=== PATIENT | female | born 1995 | race American Indian/Alaskan Native ===

== ENCOUNTER 2016-08-10 12:39 | Outpatient (CLI) | payer MEDICAID ==
[2016-08-10] MEDS ORDERED: ZITHROMAX PO ONE (14:00)
--- NOTE | 2016-08-10 14:44 | Ultrasound Report ---
BIOPHYSICAL PROFILE: INDICATION: well being. COMPARISON: Yesterday. TECHNIQUE: Transabdominal ultrasound with Doppler interrogation. 2 - breathing movements 2 - movements 2 - posture and tone 2 - Qualitative amniotic fluid volume 8 - TOTAL SCORE OF POSSIBLE 8 Heart Rate (bpm) 129
--- NOTE | 2016-08-10 14:45 | Ultrasound Report ---
OB LIMITED INDICATION: ISABELLE. COMPARISON: None similar. TECHNIQUE: Transabdominal grayscale ultrasound with Doppler interrogation. Gestation: Piña Position: Cephalic Amniotic Fluid: Increased (> 24 cm) ISABELLE = 26.4 cm Heart Rate: 129 BPM
== END 2016-08-10 15:45 | disposition home or self-care (01) ==
LOC: TRG 12:39
PROVIDERS: ATTEND Obstetrics & Gynecology
DX: O77.9 Labor and delivery complicated by fetal stress, unspecified (principal); O47.9 False labor, unspecified; Z3A.00 Weeks of gestation of pregnancy not specified
CPT/HCPCS: 59025; 76815; 76819

== ENCOUNTER 2016-08-12 08:34 | Inpatient (IN) | payer MEDICAID ==
[2016-08-12 09:55] LABS: Hemoglobin 10.5 gm/dl (10.1-14.3); Mean Corpuscular HGB Conc 33 % (30-34); Mean Corpuscular Hemoglobin 28 pg (28-32); Mean Corpuscular Volume 86 fl (79-97); Platelet Count 246 K/mm3 (140-440); Red Blood Count 3.71 M/mm3 (3.65-5.03); Red Cell Distribution Width 15.9 % (13.2-15.2); White Blood Count 8.7 K/mm3 (4.5-11.0)
[2016-08-12] MEDS ORDERED: ePHEDrine SULFATE IV PRN ×2 (10:35→15:05)
[2016-08-12] MEDS ORDERED: BRETHINE IVP PRN (10:35)
[2016-08-12] MEDS ORDERED: ZOFRAN IV PRN ×2 (10:35→20:33)
[2016-08-12] MEDS ORDERED: SUBLIMAZE IV PRN (10:35)
[2016-08-12] MEDS ORDERED: BRETHINE SUB-Q PRN (10:35)
[2016-08-12] MEDS ORDERED: MINERAL OIL PO PRN (10:35)
--- NOTE | 2016-08-12 10:43 | Event Note ---
Date: 08/12/16 (IOL admission: 21 y/o at 41.4 wk EGA admitted for IOL. VE: 1-2/50-2, soft. Ctx irregular, mild (pt unaware of presence of ctx on EFM. FHR Cat I. Balloon cath placed through cx and filled with 60 cc sterile saline. PT/ fetus tolerated well. Plan low dose pitocin while cath is in. Plan H&P next exam ( record not avail at this time). Anticipate . )
[2016-08-12] MEDS ORDERED: PITOCin/NS 20 UNIT/1000ML DRIP 1,000 ML IV SCH ×2 (11:00→21:00)
[2016-08-12] MEDS ORDERED: PITOCin/NS 30 UNIT/500ML 500 ML IV SCH (11:00)
[2016-08-12] MEDS: LACTATED RINGERS 1,000 ML IV SCH ×3 (11:12→16:18)
[2016-08-12] MEDS: PITOCin/NS 30 UNIT/500ML 500 ML IV SCH ×3 (11:22→16:25)
[2016-08-12] MEDS ORDERED: FLUARIX QUAD 2016-2017(36 MOS+) IM ONE (12:00)
--- NOTE | 2016-08-12 13:04 | History and Physical Report ---
History of Present Illness Date of examination: 08/12/16 ((LE from 10:00 exam)) Date of admission: 08/12/16 08:34 History of present illness: Admission for post EDC induction of labor Past History Past Medical History: no pertinent history Past Surgical History: no surgical history PODIATRIST History: chlamydia (Pt non-compliant with treatment, was admitted 2 days ago for tx here. ) Family/Genetic History: heart disease, hypertension (Paternal G'mother with bipolar D/O and AIDS) Social history: single (FOB present in L&D with pt) - Obstetrical History Expected Date of Delivery: 08/01/16 Actual Gestation: 41 Week(s) 4 Day(s) : 2 Para: 2 Hx # Term Pregnancies: 1 Number of Pregnancies: 0 Number of Living Children: 1 #1 year: 2,014 Birthweight: 2.722 kg Method of Delivery: Vaginal Gestational age at delivery: 38 Complications: other (Induction for IUGR) Medications and Allergies Allergies Allergy/AdvReac Type Severity Reaction Status Date / Time No Known Allergies Allergy Verified 07/21/16 23:53 Home Medications Medication Instructions Recorded Confirmed Last Taken Type No Known Home Medications [No 08/12/16 08/12/16 Unknown History Reported Home Medications] Active Meds: Active Medications Fentanyl (Sublimaze) 100 mcg IV Q2H PRN PRN Reason: Labor Pain Lactated Ringer's (Lactated Ringers) 1,000 mls @ 125 mls/hr IV DIRECT GRANT Last Admin: 08/12/16 11:12 Dose: 125 mls/hr Oxytocin/Sodium Chloride (Pitocin/Ns 20 Unit/1000ml Drip) 1,000 mls @ 125 mls/ hr IV DIRECT GRANT Oxytocin/Sodium Chloride (Pitocin/Ns 30 Unit/500ml) 500 mls @ 2 mls/hr IV TITR GRANT PRN Reason: Protocol Oxytocin/Sodium Chloride (Pitocin/Ns 30 Unit/500ml) 500 mls @ 1 mls/hr IV TITR GRANT; 1 MILLIUNITS/MIN PRN Reason: Protocol Last Admin: 08/12/16 12:26 Dose: 4 mls/hr Mineral Oil (Mineral Oil) 30 ml PO QHS PRN PRN Reason: Constipation Ondansetron HCl (Zofran) 4 mg IV Q8H PRN PRN Reason: Nausea And Vomiting Review of Systems All systems: negative - Vital Signs Vital signs: Vital Signs Temp Resp 97.6 F 18 08/12/16 09:38 08/12/16 09:38 Temp Pulse Resp BP Pulse Ox 97.8 F 80 16 120/65 99 08/12/16 11:27 08/12/16 12:28 08/12/16 11:27 08/12/16 12:28 08/12/16 11:27 - Physical Exam Breasts: Positive: normal Cardiovascular: Regular rate Lungs: Positive: Clear to auscultation Abdomen: Positive: normal appearance, soft Genitourinary (Female): Positive: normal external genitalia, normal perenium Vulva: both: normal Vagina: Positive: normal moisture Cervix: Negative: lesion, discharge Uterus: Positive: normal size, normal contour Adnexa: both: normal - Obstetrical FHR: category 1 Uterine Contraction Monitor Mode: External Cervical Dilatation: 1.5 Cervical Effacement Percentage: 50 station: -2 Uterine Contraction Pattern: Irregular Uterine Contraction Intensity: Mild Results Result Diagrams: 08/12/16 09:30 Abnormal lab results 08/12/16 Range/Units 09:30 RDW 15.9 H (13.2-15.2) % All other labs normal. Assessment and Plan A, 21 y/o @ 41.4 wk EGA admitted for IOL Hx noncompliance with tx for + CT, tx'd here 2 days ago. GBS Neg P Balloon placed Low dose pitocin while balloon is in place Will plan increasing pitocin once balloon is released Anticipate
--- NOTE | 2016-08-12 14:00 | Progress Note ---
Assessment and Plan A 41.4 wk IUP in early labor now s/p balloon placement and removal Painful ctx now and good labor progreass P. AROM with moderate amount of clear fluid Proceed now with pitocin increased to adequate ctx pattern Anticipate . Subjective - Subjective Date of service: 08/12/16 Interval history: Admission for post EDC induction of labor Patient reports: contractions (Having painful ctx. Has had one dose IV pain medication) Objective - Vital Signs Vital Signs: Vital Signs - 12hr 08/12/16 08/12/16 08/12/16 09:38 09:46 11:27 Temperature 97.6 F 97.8 F Pulse Rate 83 Pulse Rate [ 83 From Monitor] Respiratory 18 16 Rate Blood Pressure 108/68 Blood Pressure 121/68 [Left Arm] O2 Sat by Pulse 99 Oximetry 08/12/16 08/12/16 08/12/16 11:29 12:28 13:30 Temperature Pulse Rate 75 80 Pulse Rate [ From Monitor] Respiratory 18 Rate Blood Pressure 121/68 120/65 Blood Pressure [Left Arm] O2 Sat by Pulse Oximetry - Exam Breasts: deferred Lungs: Normal air movement Abdomen: Present: normal appearance Vulva: both: normal FHR: category 1 Uterine Contraction Monitor Mode: External Cervical Dilatation: 4 (Balloon in vagina was removed prior to cx exam) Cervical Effacement Percentage: 80 station: -2 with BBOW Uterine Contraction Pattern: Regular Uterine Contraction Intensity: Moderate - Labs Labs: Abnormal Labs 08/12/16 09:30 RDW 15.9 H Laboratory Results - last 24 hr 08/12/16 08/12/16 09:30 09:30 WBC 8.7 RBC 3.71 Hgb 10.5 Hct 32.0 MCV 86 MCH 28 MCHC 33 RDW 15.9 H Plt Count 246 Blood Type O POSITIVE Antibody Screen Negative
[2016-08-12] MEDS ORDERED: ePHEDrine SULFATE ONE (14:31)
--- NOTE | 2016-08-12 15:04 | Anesthesia Consultation ---
Anesthesia Consult and Med Hx Date of service: 08/12/16 - Airway Anesthetic Teeth Evaluation: Good ROM Head & Neck: Adequate Mental/Hyoid Distance: Adequate Mallampati Class: Class II Intubation Access Assessment: Probably Good - Pre-Operative Health Status ASA Pre-Surgery Classification: ASA2 Proposed Anesthetic Plan: Epidural, Spinal - Pulmonary Hx Asthma: No COPD: No Hx Pneumonia: No - Cardiovascular System Hx Hypertension: No - Central Nervous System Hx Seizures: No Hx Psychiatric Problems: No - Endocrine Hx Renal Disease: No Hx End Stage Renal Disease: No Hx Hypothyroidism: No Hx Hyperthyroidism: No - Hematic Hx Anemia: No Hx Sickle Cell Disease: No - Other Systems Hx Alcohol Use: No
[2016-08-12] MEDS ORDERED: NARCAN 2 MG/2 ML IV PRN (15:05)
[2016-08-12] MEDS ORDERED: XYLOCAINE MPF 2% ONE ×5 (15:43→19:56)
[2016-08-12] MEDS ORDERED: fentaNYL-BUPIV 2 MCG/ML-0.125% 100 ML EPIDURAL SCH ×2 (16:00→21:00)
--- NOTE | 2016-08-12 17:55 | Event Note ---
Date: 08/12/16 Patient signed out to me by NILE. She was on Pit at 6 mu/min and was 8 cm on exam. I have stopped her Pit for now until current delivery complete. Will re- start Pit once delivery complete
--- NOTE | 2016-08-12 18:22 | Progress Note ---
Assessment and Plan A. IOL at 41.4 wk EGA GBS Neg Normal progress since last exam Cat II FHR tracing P Pt signed out to Dr Craig now at my end of call shift Dr Craig informed of Cat II tracing and stated he will manage this by turning off pitocin at this time. Subjective - Subjective Date of service: 08/12/16 ((LE from 17:10 exam)) Interval history: Admission for post EDC induction of labor Patient reports: contractions (Having painful ctx. Has had one dose IV pain medication), other (comfortable now with epidural) Objective - Vital Signs Vital Signs: Vital Signs - 12hr 08/12/16 08/12/16 08/12/16 09:38 09:46 11:27 Temperature 97.6 F 97.8 F Pulse Rate 83 Pulse Rate [ 83 From Monitor] Respiratory 18 16 Rate Blood Pressure 108/68 Blood Pressure 121/68 [Left Arm] O2 Sat by Pulse 99 Oximetry 08/12/16 08/12/16 08/12/16 11:29 12:28 13:30 Temperature Pulse Rate 75 80 Pulse Rate [ From Monitor] Respiratory 18 Rate Blood Pressure 121/68 120/65 Blood Pressure [Left Arm] O2 Sat by Pulse Oximetry 08/12/16 16:13 Temperature Pulse Rate Pulse Rate [ From Monitor] Respiratory 14 Rate Blood Pressure 106/67 Blood Pressure [Left Arm] O2 Sat by Pulse Oximetry - Exam Breasts: deferred Lungs: Normal air movement Abdomen: Present: normal appearance, soft Vulva: both: normal Uterus: Present: normal FHR: category 2 (A prolonged period of bradycardia noted on tracing prior to my arrival. Current tracing with variable decels and normal variability. Pt assisted to L side after exam) Uterine Contraction Monitor Mode: External Cervical Dilatation: 8 Cervical Effacement Percentage: 90 station: -2 Uterine Contraction Pattern: Regular Uterine Contraction Intensity: Strong/Firm - Labs Labs: Abnormal Labs 08/12/16 09:30 RDW 15.9 H Laboratory Results - last 24 hr 08/12/16 08/12/16 09:30 09:30 WBC 8.7 RBC 3.71 Hgb 10.5 Hct 32.0 MCV 86 MCH 28 MCHC 33 RDW 15.9 H Plt Count 246 Blood Type O POSITIVE Antibody Screen Negative
[2016-08-12] MEDS ORDERED: PEPCID IV NR (18:51)
[2016-08-12] MEDS ORDERED: REGLAN IV ONE (18:51)
[2016-08-12] MEDS ORDERED: BICITRA PO ONE (18:51)
[2016-08-12] MEDS ORDERED: NACL 0.9% 500 ML 500 ML IV NR (18:59)
[2016-08-12] MEDS ORDERED: ANCEF/STERILE WATER 2 GM/20 ML 20 ML IV NR (19:00)
[2016-08-12] MEDS ORDERED: PITOCin/NS 20 UNIT/1000ML DRIP 1,000 ML IV NR (19:00)
[2016-08-12] MEDS ORDERED: LACTATED RINGERS 1,000 ML IV NR (19:00)
[2016-08-12] MEDS ORDERED: WATER FOR IRRIG STERILE IR ONE (19:40)
[2016-08-12] MEDS ORDERED: NACL 0.9% IR ONE (19:40)
[2016-08-12] MEDS ORDERED: DIPRIVAN 10 MG/ML IV ONE (19:42)
[2016-08-12] MEDS ORDERED: MORPHINE ONE (19:49)
[2016-08-12] MEDS ORDERED: TORADOL ONE (19:55)
[2016-08-12] MEDS ORDERED: NEO SYNEPHRINE ONE (19:56)
[2016-08-12] MEDS ORDERED: VERSED ONE (19:59)
--- NOTE | 2016-08-12 20:32 | Post Anesthesia Evaluation ---
- Post Anesthesia Evaluation Patient Participated: Yes Airway Patent: Yes Stable Respiratory Function: Yes Nausea/Vomiting: No Temp > 96.8F: Yes Pain Manageable: Yes Adequeate Hydration: Yes Anesthesia Complications: No
[2016-08-12] MEDS ORDERED: NARCAN 0.4 MG/1 ML IV PRN ×2 (20:33→20:39)
[2016-08-12] MEDS ORDERED: PHENERGAN PO PRN (20:33)
[2016-08-12] MEDS ORDERED: PHENERGAN PR PRN (20:33)
--- NOTE | 2016-08-12 20:36 | Operative Report ---
Operative Report Operative Report: DATE: 08/12/2016 PREOPERATIVE DIAGNOSIS: 21-year-old at 41+4 wks, Cat 2 tracing, arrest of descent, arrest of dilation POSTOP DIAGNOSIS: same NAME OF PROCEDURE: Primary low transverse section SURGEON: RACHNA KELLOGG MD SILK FOLDER: [] ANESTHESIA: Epidural, Propofol EBL: 700 mL PATHOLOGY SPECIMEN: None URINE OUTPUT: 400 mL FINDINGS: Male in cephalic presentation, OT position, time of delivery was 19:51, infant weight was 7 lbs. 9 oz. or 3422 g, Apgars were , normal uterus tubes and ovaries bilaterally DESCRIPTION OF PROCEDURE: After informed consent, patient is patient was taken to the operating room where she was prepped and draped in a sterile fashion. Pfannestial incision was performed 2 cm above the pubic symphysis. This was then carried down to the underlying rectus fascia which was scored in the midline. The fascial incision was extended laterally with the use of [place] scissors, anterior leaf was then grasped with [place]'s elevated dissected sharply and bluntly off the underlying rectus. In a similar fashion the inferior leaf was grasped elevated dissected sharply and bluntly off the underlying rectus. The rectus was in the midline and the peritoneal cavity was entered without difficulty. After good visualization of the bladder the peritoneal layer was extended up and down; bladder blade was placed in the patient's pelvic cavity, bladder flap was created without difficulty. A hysterotomy incision was then performed with clear amniotic fluid noted. Infant in cephalic presentation was delivered without difficulty in the usual manner; cord was clamped cut and was handed over to waiting NICU staff. The placenta was then delivered intact, the uterus was then exteriorized cleared of all clots and debris. Her hysterotomy incision was then closed in a running locked fashion with 0 Vicryl on a CTX; using the same suture were able to imbricate the initial layer. The uterus was then returned to the patient's pelvic cavity; the peritoneal edges were grasped with hemostats and Suzy's; irrigation was used to clear the gutters of all clots and debris. Tisseel hemostatic agent was applied copiously over the hysterotomy incision. The bladder flap was then closed in a running fashion with 3-0 Vicryl. The peritoneal layer was closed in a running fashion with 3-0 Vicryl; the rectus was reapproximated with a single [id number] stitch. The fascia was then closed in a running fashion with 0 Vicryl; the subcutaneous layer was reapproximated with a single [id number] stitch. The skin was then closed in a subcuticular manner with 4-0 Monocryl. She tolerated the procedure well lap and instrument counts were correct 2, she did receive 2 grams of Ancef prior to the procedure. She is transferred to PACU in stable condition.
[2016-08-12] MEDS ORDERED: MYLICON PO PRN (20:39)
[2016-08-12] MEDS ORDERED: SENOKOT PO PRN (20:39)
[2016-08-12] MEDS ORDERED: TUCKS PAD TP PRN (20:39)
[2016-08-12] MEDS ORDERED: MOTRIN PO PRN (20:39)
[2016-08-12] MEDS ORDERED: LANSINOH TP PRN (20:39)
[2016-08-12] MEDS ORDERED: TYLENOL PO PRN (20:39)
[2016-08-12] MEDS ORDERED: MILK OF MAGNESIA PO PRN (20:39)
[2016-08-12] MEDS ORDERED: ANUCORT-HC PR PRN (20:39)
[2016-08-12] MEDS ORDERED: TORADOL IV PRN (20:46)
[2016-08-12] MEDS ORDERED: SODIUM CHLORIDE FLUSH SYRINGE 10 ML IV NR (21:00)
[2016-08-12] MEDS ORDERED: D5LR 1,000 ML IV SCH (21:00)
[2016-08-12] MEDS ORDERED: SODIUM CHLORIDE FLUSH SYRINGE 10 ML IV PRN (21:00)
[2016-08-12] MEDS: DILAUDID IV PRN ×2 (21:15→21:37)
[2016-08-13 01:28] LABS: Basophils % (Auto) 0.1 % (0.0-1.8); Hematocrit 27.1 % (30.3-42.9); Hemoglobin 8.7 gm/dl (10.1-14.3); Mean Corpuscular HGB Conc 32 % (30-34); Mean Corpuscular Hemoglobin 28 pg (28-32); Mean Corpuscular Volume 87 fl (79-97); Platelet Count 212 K/mm3 (140-440); Red Blood Count 3.13 M/mm3 (3.65-5.03); Red Cell Distribution Width 15.6 % (13.2-15.2); White Blood Count 18.1 K/mm3 (4.5-11.0)
[2016-08-13 09:04] LABS: Hematocrit 24.4 % (30.3-42.9); Hemoglobin 8.2 gm/dl (10.1-14.3)
--- NOTE | 2016-08-13 10:39 | Progress Note ---
Assessment and Plan A: PPD#1 s/p P c/s Bottle feeding Pain well controlled P: Continue PP/PO care Discontinue chew catheter Encouraged ambulation Subjective - Subjective Date of service: 08/13/16 Principal diagnosis: Primary section Interval history: See H&P and operative note Patient reports: appetite normal, voiding normally, pain well controlled, flatus , ambulating normally [place]: doing well, bottle feeding Objective - Vital Signs Latest vital signs: Vital Signs Temp Pulse Pulse Resp BP BP Pulse Ox 08/13/16 09:10 98.6 F 105 H 20 116/71 08/13/16 04:30 98.5 F 87 14 118/68 08/13/16 00:20 97.3 F L 89 18 121/79 08/12/16 21:45 98.3 F 99 H 26 H 137/84 99 08/12/16 21:37 24 08/12/16 21:30 78 23 125/78 99 08/12/16 21:15 100 H 26 H 127/85 100 08/12/16 21:00 79 19 123/84 100 08/12/16 20:55 88 28 H 122/83 100 08/12/16 20:50 98 H 24 113/72 100 08/12/16 20:44 97.8 F 85 18 112/62 100 08/12/16 19:02 89 100 08/12/16 18:00 98.2 F 72 16 114/65 100 08/12/16 16:13 14 106/67 08/12/16 13:30 18 08/12/16 12:28 80 120/65 08/12/16 11:29 75 121/68 08/12/16 11:27 97.8 F 83 16 121/68 99 Intake and Output 08/12/16 08/13/16 08/13/16 22:59 06:59 14:59 Intake Total 2125 1180 240 Output Total 850 825 Balance 1275 355 240 Intake: IV 2125 1000 PITOCin/NS 20 UNIT/1000ML 125 1000 DRIP 1,000 ML @ 125 mls/ hr IV DIRECT GRANT Rx#: [id number] Oral 180 240 Output: Urine 850 825 Indwelling Catheter 200 825 Other: Total, Intake Amount 180 240 Total, Output Amount 200 400 # Bowel Movements 0 Estimated Blood Loss 700 - Exam Breasts: Present: normal Lungs: Present: Normal air movement Abdomen: Present: normal appearance Vulva: both: normal (scant rubra lochia, no clots) Uterus: Present: firm, fundal height at umbilicus Extremities: Present: normal Deep Tendon Reflex Grade: Normal +2 Incision: Present: normal, dry, intact, dressed (Pressure drressing with old dried blood tinged drainage noted) - Labs Labs: Abnormal lab results 08/12/16 08/13/16 Range/Units 00:45 08:30 WBC 18.1 H (4.5-11.0) K/mm3 RBC 3.13 L (3.65-5.03) M/mm3 Hgb 8.7 L 8.2 L (10.1-14.3) gm/dl Hct 27.1 L 24.4 L D (30.3-42.9) % RDW 15.6 H (13.2-15.2) % Lymph % (Auto) 5.3 L (13.4-35.0) % Lymph # 1.0 L (1.2-5.4) K/mm3 [place] # 1.3 H (0.0-0.8) K/mm3 Seg Neutrophils % 87.3 H (40.0-70.0) % Seg Neutrophils # 15.8 H (1.8-7.7) K/mm3
[2016-08-13] MEDS: PERCOCET 5/325 PO PRN ×2 (13:15→21:46)
[2016-08-13] MEDS: FEOSOL PO SCH (13:15)
--- NOTE | 2016-08-13 15:47 | Progress Note ---
Subjective Date of service: 08/13/16 Principal diagnosis: Primary section Interval history: POD #1 s/p UP ambulating no residual weakness noted Pain increased with ambulation Pain score at 8 due to ambulating Ambulation encouraged No N/V No anesthetic complications noted Objective - Constitutional Vitals: Vital Signs - 12hr 08/13/16 08/13/16 04:30 09:10 Temperature 98.5 F 98.6 F Pulse Rate [ 87 105 H From Monitor] Respiratory 14 20 Rate Blood Pressure 118/68 116/71 [Left Arm] - Labs CBC & Chem 7: 08/13/16 08:30 Labs: Abnormal lab results 08/12/16 08/13/16 Range/Units 00:45 08:30 WBC 18.1 H (4.5-11.0) K/mm3 RBC 3.13 L (3.65-5.03) M/mm3 Hgb 8.7 L 8.2 L (10.1-14.3) gm/dl Hct 27.1 L 24.4 L D (30.3-42.9) % RDW 15.6 H (13.2-15.2) % Lymph % (Auto) 5.3 L (13.4-35.0) % Lymph # 1.0 L (1.2-5.4) K/mm3 [place] # 1.3 H (0.0-0.8) K/mm3 Seg Neutrophils % 87.3 H (40.0-70.0) % Seg Neutrophils # 15.8 H (1.8-7.7) K/mm3
[2016-08-14] MEDS: PERCOCET 5/325 PO PRN ×3 (04:05→17:30)
--- NOTE | 2016-08-14 07:18 | Progress Note ---
Assessment and Plan - Patient Problems (1) Status post primary low transverse section Diagnosis Date: 08/14/16 Current Visit: Yes Status: Resolved Plan to address problem: A: S/P C Section - POD #2 Doing well P: Probable may go home tomorrow Subjective - Subjective Date of service: 08/14/16 Principal diagnosis: POD #2 - Primary section Interval history: Pt is feeling well without complaints. Bleeding improved. Tolerating a reg diet without nausea or vomiting. Patient reports: appetite normal, voiding normally, pain well controlled, flatus , ambulating normally : doing well, bottle feeding Objective - Vital Signs Latest vital signs: Vital Signs Temp Pulse Resp BP 08/14/16 00:00 97.6 F 101 H 18 105/65 08/13/16 15:12 98 F 100 H 20 122/57 08/13/16 12:00 98.2 F 103 H 20 100/58 08/13/16 09:10 98.6 F 105 H 20 116/71 Intake and Output 08/13/16 08/14/16 08/14/16 22:59 06:59 14:59 Intake Total 240 Output Total 800 Balance -560 Intake: Oral 240 Output: Urine 800 Void 800 Other: Total, Intake Amount 240 Total, Output Amount 800 # Voids Void 2 - Exam Breasts: Present: deferred Cardiovascular: Present: Regular rate Lungs: Present: Clear to auscultation Abdomen: Present: normal appearance, soft Uterus: Present: normal, firm, fundal height below umbilicus Extremities: Present: normal Incision: Present: normal, dry, intact, dressed - Labs Labs: Abnormal lab results 08/13/16 Range/Units 08:30 Hgb 8.2 L (10.1-14.3) gm/dl Hct 24.4 L D (30.3-42.9) % Laboratory Tests 08/12/16 08/12/16 08/12/16 00:45 09:30 09:30 WBC 18.1 H 8.7 RBC 3.13 L 3.71 Hgb 8.7 L 10.5 Hct 27.1 L 32.0 MCV 87 86 MCH 28 28 MCHC 32 33 RDW 15.6 H 15.9 H Plt Count 212 246 Lymph % (Auto) 5.3 L [place] % (Auto) 7.3 Eos % (Auto) 0.0 Baso % (Auto) 0.1 Lymph # 1.0 L [place] # 1.3 H Eos # 0.0 Baso # 0.0 Seg Neutrophils % 87.3 H Seg Neutrophils # 15.8 H Blood Type O POSITIVE Antibody Screen Negative 08/13/16 08:30 WBC RBC Hgb 8.2 L Hct 24.4 L D MCV MCH MCHC RDW Plt Count Lymph % (Auto) [place] % (Auto) Eos % (Auto) Baso % (Auto) Lymph # [place] # Eos # Baso # Seg Neutrophils % Seg Neutrophils # Blood Type Antibody Screen
[2016-08-14] MEDS: FEOSOL PO SCH (15:38)
[2016-08-14] MEDS: PRENATAL VITAMIN PO SCH (15:38)
[2016-08-15] MEDS: PERCOCET 5/325 PO PRN ×2 (01:15→11:11)
[2016-08-15] MEDS: FEOSOL PO SCH (09:27)
[2016-08-15] MEDS: PRENATAL VITAMIN PO SCH (09:27)
--- NOTE | 2016-08-15 10:39 | Progress Note ---
Assessment and Plan - Patient Problems (1) Status post primary low transverse section Diagnosis Date: 08/14/16 Current Visit: Yes Status: Resolved Plan to address problem: A: S/P C Section - POD #3 Doing well P: May go home today Subjective - Subjective Date of service: 08/15/16 Principal diagnosis: POD #3 - Primary section Interval history: Pt is feeling well without complaints. Bleeding improved. Tolerating a reg diet without nausea or vomiting, ambulating and voiding without difficulty. Patient reports: appetite normal, voiding normally, pain well controlled, flatus , ambulating normally [place]: doing well, bottle feeding Objective - Vital Signs Latest vital signs: Vital Signs Temp Pulse Resp BP 08/15/16 08:31 98.0 F 86 18 120/76 08/15/16 01:25 98.7 F 94 H 18 119/77 08/14/16 16:05 98.7 F 96 H 18 112/68 Intake and Output 08/14/16 08/15/16 08/15/16 22:59 06:59 14:59 Intake Total 200 360 120 Balance 200 360 120 Intake: Oral 200 120 Intake, Free Water 360 Other: Total, Intake Amount 200 120 # Voids Void 3 1 Indwelling Catheter 1 - Exam Cardiovascular: Present: Regular rate Lungs: Present: Clear to auscultation Abdomen: Present: normal appearance, soft Uterus: Present: normal, firm, fundal height below umbilicus Extremities: Present: normal Incision: Present: normal, dry, intact
--- NOTE | 2016-08-15 10:42 | Discharge Summary ---
Providers - Providers Date of Admission: 08/12/16 08:34 Date of discharge: 08/15/16 Attending physician: CRISTINA BUSTOS MD Primary care physician: CRISTINA BUSTOS MD Hospitalization Reason for admission: induction of labor, IUP at term Delivery: Procedure: section, primary low transverse Incision: normal, dry, intact Other procedures: none complications: none Discharge diagnosis: IUP at term delivered [place] baby: male Hospital course: Pt is a 21yo BF presented to L&D for induction of labor due to postdates. She failed to progress in labor, and therefore was delivered by c section without complications. Post operative course was unremarkable, and by POD #3 she was tolerating a reg diet without nausea or vomiting, ambulating and voiding without difficulty. She was therefore discharged to home in stable condition on POD #3. Condition at discharge: Good Disposition: DISCHARGED TO HOME OR SELFCARE - Discharge Diagnoses (1) Status post primary low transverse section Status: Resolved Plan - Discharge Medications Prescriptions: Ferrous Sulfate [Feosol 325 MG tab] 325 mg PO BID #60 tablet Ibuprofen [Motrin 600 MG tab] 600 mg PO Q8H PRN #30 tablet PRN Reason: Pain Multivitamin with Iron [Multivitamins with Iron] 1 each PO DAILY #30 tablet oxyCODONE /ACETAMINOPHEN [Percocet 5/325] 1 tab PO Q6HR PRN #30 tablet PRN Reason: Pain - Provider Discharge Summary Activity: routine, no sex for 6 weeks, no heavy lifting 4 weeks, no strenuous exercise Diet: routine Instructions: routine Additional instructions: [] Smoking cessation referral if applicable(refer to patient education folder for contact #) [] Refer to [facility] Booklet Call your doctor immediately for: * Fever > 100.5 * Heavy vaginal bleeding ( >1 pad per hour) * Severe persistent headache * Shortness of breath * Reddened, hot, painful area to leg or breast * Drainage or odor from incision. * Keep incision clean and dry at all times and follow doctor's instructions regarding bathing/showering - Follow up plan Follow up: CRISTINA CHERY MD [Primary Care Provider] - 14 Days
[2016-08-15 12:19] VITALS: BP 120/68
== END 2016-08-15 11:15 | disposition home or self-care (01) | DRG 766 ==
LOC: LD 08:34 → APU 19:45 → OB 22:38 → APU 22:38
PROVIDERS: ADMIT Obstetrics & Gynecology; ATTEND Obstetrics & Gynecology
PROC: 10D00Z1 Extraction of Products of Conception, Low, Open Approach (ICD-10-PCS; principal; 2016-08-12)
PROC: 00HU33Z Insertion of Infusion Device into Spinal Canal, Percutaneous Approach (ICD-10-PCS; 2016-08-12)
PROC: 3E0R3CZ (ICD-10-PCS; 2016-08-12)
DX: O48.0 Post-term pregnancy (principal); O62.0 Primary inadequate contractions; O76 Abnormality in fetal heart rate and rhythm complicating labor and delivery; Z3A.41 41 weeks gestation of pregnancy; Z37.0 Single live birth
CPT/HCPCS: 36415; 85014; 85018; 85025; 85027; 86850; 86900; 86901; 90686; C9250; J0690; J1170; J1885; J2250; J2270; J2370; J2590; J2704; J2765; J3010; J7120; J7121